=== PATIENT | female | born 1965 | race Two or more races ===

== ENCOUNTER 2018-10-05 08:00 | Emergency (ER) | payer OTHER ==
[2018-10-05] MEDS: LIDOCAINE 1% (MPF) 5 ML VIAL INJ (08:43)
== END 2018-10-05 10:11 | disposition home or self-care (01) ==
LOC: FTE 08:00
DX: S61.217A Laceration without foreign body of left little finger without damage to nail, initial encounter (principal); W26.0XXA Contact with knife, initial encounter; Y92.9 Unspecified place or not applicable
CPT/HCPCS: 12001; 99282-25